=== PATIENT | female | born 1965 | race Two or more races ===

== ENCOUNTER → 2025-02-05 07:49 | Outpatient (CLI) | payer OTHER ==
[~2025-02-05 07:49] MED LIST: AVAPRO300 MG PO; COUMADIN; PLAQUENIL
[2025-02-05 09:55] LABS: BASO % 0.7 % (0.1-1.2); EOS # 0.13 (0.04-0.54); EOS % 3.1 % (0.7-7.0); LYMPH # 1.75 (1.18-3.74); LYMPH % 41.2 % (19.3-53.1); MEAN PLATELET VOLUME 10.50 fl (9.4-12.4); MONO # 0.57 (0.24-0.82); NEUT # 1.77 (1.56-6.13); NEUT % 41.6 % (34.0-71.1); RED CELL DISTRIBUTION WIDTH 12.8 % (11.6-14.4)
[2025-02-05 09:56] LABS: MONO % 13.4 % (4.7-12.5)
[2025-02-05 09:57] LABS: ERYTHROCYTE SEDIMENTATION RATE 11 mm/hr (0-30)
[2025-02-05 09:58] LABS: URINE APPEARANCE Clear; URINE BILIRRUBIN Negative (NEGATIVE); URINE BLOOD Negative; URINE COLOR Yellow; URINE GLUCOSE Negative (NEGATIVE); URINE KETONE Negative (NEGATIVE); URINE LEUKOCYTE Negative; URINE NITRATE Negative; URINE PROTEIN Negative (NEGATIVE); URINE UROBILINOGEN 0.2 E.U./dl
[2025-02-05 10:02] LABS: URINE BACTERIA 1457.9 uL (0.0-1933); URINE EPITHELIAL CELLS 17.0 uL (0.0-38.8); URINE RBC 4.5 uL (0.0-20.8); URINE WBC 6.4 uL (0.0-23.2)
[2025-02-05 10:08] LABS: URINE CAST 0.00 uL (0.0-1.40)
[2025-02-05 10:20] LABS: INR 1.97
[2025-02-05 11:02] LABS: ALT/SGPT 41.0 U/L (12-78); AST/SGOT 29.0 U/L (15-37); BILIRUBIN TOTAL 0.36 mg/dL (0.3-1.2); BUN CREA RATIO 28.0 (7.0-25.0); CHOL HDL RATIO 4.9 (0-5.0); CREATININE SERUM 0.43 mg/dL (0.55-1.02); GFR 149.28; GLOBULINA 3.4 G/DL (2.4-3.5); GLUCOSE FASTING 102.0 mg/dL (65-100); HDL 46.0 mg/dl (40-60); LDL 147.0 mg/dl (0-130); OSMOLALITY SERUM 283.0 MOSM/KG (275-295); T3 UPTAKE 28.0 % (30-39); T4 TOTAL 7.52 UG/DL (4.8-13.9); TSH 4.32 uIU/mL (0.358-3.74); VLDL 30.0 (0-39)
[2025-02-07 10:39] LABS: T3 TOTAL 1.36 ng/ml (0.846-2.02); VITAMIN D3 25 HYDROXY 24.51 ng/ml (30-120)
[2025-02-08 09:11] LABS: ANTI THYROID PEROXIDASE < 9 IU/mL (0-34); COMPLEMENT C3 149 mg/dL (82-167); COMPLEMENT C4 28 mg/dL (12-38)
[2025-02-08 11:07] LABS: DNA AB DOUBLE STRABDED 12 IU/mL (0-9)
[2025-02-08 15:07] LABS: ANTI CARDIO IGA < 9 APL U/mL (0-11); ANTI CARDIO IGG < 9 GPL U/mL (0-14); ANTI CARDIO IGM < 9 MPL U/mL (0-12)
[2025-02-08 19:07] LABS: anti thy < 1.0 IU/mL (0.0-0.9); tpo 10 IU/mL (0-34)
[2025-02-10 10:41] LABS: ob NEGATIVE (NEGATIVE)
[2025-02-10 17:07] LABS: beta 2 gly iga < 9 (0-25); beta 2 gly igg 23 (0-20); beta 2 gly igm < 9 (0-32)
== END | disposition home or self-care (01) ==
LOC: LAB 07:49
DX: I11.9 Hypertensive heart disease without heart failure (principal); M32.9 Systemic lupus erythematosus, unspecified; E11.9 Type 2 diabetes mellitus without complications; M06.9 Rheumatoid arthritis, unspecified; E55.9 Vitamin D deficiency, unspecified; E03.9 Hypothyroidism, unspecified; N39.0 Urinary tract infection, site not specified; E78.2 Mixed hyperlipidemia; M10.00 Idiopathic gout, unspecified site; I10 Essential (primary) hypertension; E03.2 Hypothyroidism due to medicaments and other exogenous substances; M35.01 Sjogren syndrome with keratoconjunctivitis; M32.10 Systemic lupus erythematosus, organ or system involvement unspecified; D68.61 Antiphospholipid syndrome

== ENCOUNTER 2025-02-06 09:59 | Emergency (ER) | payer OTHER ==
[~2025-02-06] VITALS: Ht 172.7 cm; Wt 94.3 kg
[2025-02-06] MEDS ORDERED: PLAQUENIL (10:05)
[2025-02-06] MEDS ORDERED: COUMADIN (10:06)
[2025-02-06] MEDS ORDERED: AVAPRO300 MG PO (10:06)
[2025-02-06] MEDS ORDERED: ONDANSETRON HCL 2 MG/ML VIAL IV STA (10:20)
[2025-02-06] MEDS ORDERED: FAMOTIDINE/PF 20 MG/2 ML VIAL IV PUSH STA (10:20)
[2025-02-06] MEDS ORDERED: 0.9 % SODIUM CHLORIDE 1,000 ML IV STA (10:21)
[2025-02-06] MEDS ORDERED: LACTOBACILLUS ACIDOPHILUS 1 CAP CAP PO STA (10:22)
[2025-02-06] MEDS ORDERED: ONDANSETRON HCL 2 MG/ML VIAL ONE (10:27)
[2025-02-06] MEDS ORDERED: LACTOBACILLUS ACIDOPHILUS 1 CAP CAP PO ONE (10:27)
[2025-02-06] MEDS ORDERED: FAMOTIDINE/PF 20 MG/2 ML VIAL ONE (10:28)
[2025-02-06 10:49] LABS: BASO % 0.2 % (0.1-1.2); EOS # 0.03 (0.04-0.54); EOS % 0.4 % (0.7-7.0); LYMPH # 0.62 (1.18-3.74); LYMPH % 7.4 % (19.3-53.1); MEAN PLATELET VOLUME 9.80 fl (9.4-12.4); MONO # 0.35 (0.24-0.82); MONO % 4.2 % (4.7-12.5); NEUT # 7.32 (1.56-6.13); NEUT % 87.7 % (34.0-71.1); RED CELL DISTRIBUTION WIDTH 13.1 % (11.6-14.4)
[2025-02-06 11:12] LABS: INR 1.5
[2025-02-06 11:44] LABS: ALT/SGPT 40.0 U/L (12-78); AST/SGOT 27.0 U/L (15-37); BILIRUBIN TOTAL 0.6 mg/dL (0.3-1.2); BUN CREA RATIO 21.0 (7.0-25.0); CREATININE SERUM 0.63 mg/dL (0.55-1.02); GFR 96.07; GLOBULINA 3.7 G/DL (2.4-3.5); GLUCOSE FASTING 135.0 mg/dL (65-100); OSMOLALITY SERUM 283.0 MOSM/KG (275-295)
== END 2025-02-06 12:39 | disposition home or self-care (01) ==
LOC: ER 09:59
PROVIDERS: General Practice
DX: R11.10 Vomiting, unspecified (principal); R19.7 Diarrhea, unspecified; M32.8 Other forms of systemic lupus erythematosus

== ENCOUNTER → 2025-02-18 09:15 | Outpatient (CLI) | payer OTHER | END | disposition home or self-care (01) | LOC: NUCLEAR 09:15 | PROVIDERS: ATTEND Internal Medicine Rheumatology | DX: M81.0 Age-related osteoporosis without current pathological fracture (principal) ==